=== PATIENT | female | born 1935 | race Caucasian/White ===

== ENCOUNTER 2022-05-14 21:43 | Inpatient (IN) | payer MEDICARE, OTHER ==
[~2022-05-14] VITALS: Ht 157.5 cm; Wt 37.6 kg
--- NOTE | 2022-05-14 21:45 | NUR ---
[id number] from [facility], GLF denies LOC, c/o L shoulder pain, back pain. Pt A/Ox2 with confusion. Tolerating R/a well with no resp distress. Connected pt to POX & monitor. Safety measures in place.
--- NOTE | 2022-05-14 22:30 | NUR ---
FRONT FACER AT PT'S BEDSIDE
--- NOTE | 2022-05-14 22:37 | NUR ---
RAC #20G S/L BLOOD COLLECTED AND SENT TO LAB
--- NOTE | 2022-05-14 22:37 | NUR ---
EMT AT PT'S BEDSIDE FOR EKG
--- NOTE | 2022-05-14 23:01 | NUR ---
COVID ANTIGEN SWAB COLLECTED AND SENT TO LAB
[2022-05-14 23:17] LABS: BASOPHILS % (AUTO) 0.1 % (0.0-2.0); EOSINOPHILS % (AUTO) 0.1 % (0.0-6.0); HEMATOCRIT 42 % (33-45); LYMPHOCYTES # (AUTO) 0.3 K/uL (0.8-4.8); LYMPHOCYTES % (AUTO) 5.8 % (20.0-44.0); MEAN CORPUSCULAR HGB CONC 33 g/dl (31.0-36.0); MEAN CORPUSCULAR VOLUME 90 fL (82-100); MONOCYTES # (AUTO) 0.7 K/uL (0.1-1.30); MONOCYTES % (AUTO) 11.6 % (2.0-12.0); NEUTROPHILS # (AUTO) 4.7 K/uL (1.8-8.9); NEUTROPHILS % (AUTO) 82.4 % (43.0-81.0); PLATELET COUNT (AUTO) 150 K/uL (150-450); RED BLOOD CELL COUNT(AUTO) 4.72 MIL/uL (4.0-5.2); WHITE BLOOD COUNT (AUTO) 5.7 K/uL (4.3-11.0)
[2022-05-14 23:22] LABS: CALCIUM, SERUM 10.2 mg/dL (8.5-10.1); CARBON DIOXIDE 28 mmol/L (21-32); CHLORIDE 103 mmol/L (98-107); CREATININE 1.1 mg/dL (0.6-1.3); GLUCOSE 122 mg/dL (74-106); POTASSIUM 3.8 mmol/L (3.5-5.1); SODIUM SERUM 142 mmol/L (136-145); UREA NITROGEN, BLOOD 17 mg/dL (7-18)
[2022-05-14 23:29] LABS: ALANINE AMINOTRANSFERASE 51 U/L (12-78); ALBUMIN 3.6 g/dL (3.4-5.0); ALKALINE PHOSPHATASE 137 U/L (46-116); ASPARTATE AMINOTRANSFERASE 54 U/L (15-37); BILIRUBIN,DIRECT 0.2 mg/dL (0.0-0.2); BILIRUBIN,TOTAL 0.5 mg/dL (0.2-1.0); TOTAL PROTEIN, SERUM 7.4 g/dL (6.4-8.2)
--- NOTE | 2022-05-14 23:51 | NUR ---
URINE COLLECTED AND SEND TO LAB
--- NOTE | 2022-05-14 23:51 | NUR ---
PT TAKEN TO CT VIA BERNARD
[2022-05-15 00:08] LABS: BILIRUBIN,URINE NEGATIVE (NEGATIVE); COLOR,URINE YELLOW (YELLOW); LEUKOCYTE ESTERASE ,URINE NEGATIVE (NEGATIVE); NITRITE, URINE NEGATIVE (NEGATIVE); PROTEIN,URINE NEGATIVE (NEGATIVE); UGLUCOSE NEGATIVE (NEGATIVE); UROBILINOGEN,URINE 0.2 EU/dL (0.2)
[2022-05-15 00:21] LABS: BACTERIA,URINE Rare /HPF (None Seen); RBC,URINE 0-2 /HPF (0-2); SQUAMOUS EPITHELIAL CELL,UR Few /HPF (None Seen)
--- NOTE | 2022-05-15 01:10 | NUR ---
CALLED [facility] TO PAGE FOR PANEL; AWAITING CALL FROM LUPILLO WASHBURN
--- NOTE | 2022-05-15 01:46 | NUR ---
LUPILLO MEDICINE WORKER AT PT'S BEDSIDE FOR EVAL
[2022-05-15] MEDS ORDERED: MAG HYDROX/AL HYDROX/SIMETH 30 ML UDC PO PRN (02:00)
[2022-05-15] MEDS ORDERED: Z GUARD REMEDY 4 OZ OINT TP PRN (02:00)
[2022-05-15] MEDS ORDERED: MAGNESIUM HYDROXIDE 30 ML UDC PO PRN (02:00)
[2022-05-15] MEDS ORDERED: ZOLPIDEM TARTRATE 5 MG TABLET PO PRN (02:00)
[2022-05-15] MEDS ORDERED: ONDANSETRON HCL/PF 4 MG/2 ML VIAL IVP PRN (02:00)
[2022-05-15] MEDS ORDERED: IV NS 0.9% 1,000 ML IV ONE (02:00)
[2022-05-15] MEDS ORDERED: ACETAMINOPHEN 325 MG TABLET PO PRN (02:00)
--- NOTE | 2022-05-15 02:23 | NUR ---
TEACHER PRESCHOOL AT PT'S BEDSIDE
[2022-05-15 05:06] LABS: BASOPHILS % (AUTO) 0.3 % (0.0-2.0); HEMATOCRIT 39 % (33-45); HEMOGLOBIN 13.1 g/dL (11.5-14.8); LYMPHOCYTES # (AUTO) 0.6 K/uL (0.8-4.8); LYMPHOCYTES % (AUTO) 12.4 % (20.0-44.0); MEAN CORPUSCULAR HGB CONC 34 g/dl (31.0-36.0); MEAN CORPUSCULAR VOLUME 90 fL (82-100); MONOCYTES # (AUTO) 0.7 K/uL (0.1-1.30); MONOCYTES % (AUTO) 14.2 % (2.0-12.0); NEUTROPHILS # (AUTO) 3.7 K/uL (1.8-8.9); NEUTROPHILS % (AUTO) 73.1 % (43.0-81.0); PLATELET COUNT (AUTO) 153 K/uL (150-450); RED BLOOD CELL COUNT(AUTO) 4.31 MIL/uL (4.0-5.2)
[2022-05-15 05:16] LABS: CALCIUM, SERUM 9.3 mg/dL (8.5-10.1); POTASSIUM 3.5 mmol/L (3.5-5.1)
[2022-05-15 05:19] LABS: MAGNESIUM 2.2 mg/dL (1.8-2.4); PHOSPHORUS 3.2 mg/dL (2.5-4.9)
[2022-05-15 05:29] LABS: THYROID STIMULATING HORMONE 1.919 uIU/mL (0.358-3.74)
--- NOTE | 2022-05-15 07:15 | NUR ---
RECEIVED PT FROM GONZALO RODRÍGUEZ PT AWAKE NO DISTRESS
--- NOTE | 2022-05-15 07:25 | NUR ---
VSS. ENDORSED ANY TO DONALD RODRÍGUEZ.
--- NOTE | 2022-05-15 08:30 | NUR ---
BLOOD DROW FOR TROPONIN BY LAB TACH AT BED SIDE
--- NOTE | 2022-05-15 08:42 | NUR ---
ROOM 313-2
[2022-05-15] MEDS ORDERED: DIVA125T32 PO (09:00)
[2022-05-15] MEDS ORDERED: BENAZEPRIL HCL 10 MG TABLET ONE (09:00)
[2022-05-15] MEDS ORDERED: PANTOPRAZOLE 40 MG VIAL ONE (09:00)
[2022-05-15] MEDS ORDERED: LEVOTHYROXINE SODIUM 50 MCG TABLET ONE (09:00)
[2022-05-15] MEDS ORDERED: TRAZ150T75 PO (09:00)
[2022-05-15] MEDS ORDERED: BENA10TA74 PO (09:00)
[2022-05-15] MEDS: LEVOTHYROXINE SODIUM 50 MCG TABLET PO SCH (09:02)
[2022-05-15] MEDS: PANTOPRAZOLE 40 MG VIAL IV SCH (09:02)
[2022-05-15] MEDS: BENAZEPRIL HCL 10 MG TABLET PO SCH (09:03)
--- NOTE | 2022-05-15 09:20 | NUR ---
HAND OFF Charlie VALADEZ RN TO ROOM 313-2 VIA AKASH LOCKHART AND FIORDALIZA TO BR WITH GORDO
--- NOTE | 2022-05-15 10:12 | NUR ---
RN ADMITTING NOTES PATIENT CAME TO UNIT @0950 VIA GURNEY ACCOMPANIED BY 2 ER STAFF. PATIENT ABLE TO STAND AND TRANSFER WITH ASSIST TO BED. PATIENT HAD NO PAIN EXPRESSED. PATIENT A/Ox1-2, EPISODES OF CONFUSION. PATIENT REFUSED SKIN CHECK AND TELE MONITORING WILL ATTEMPT AGAIN. V/S STABLE. FULL BODY ASSESSMENT COMPLETED: HEART SOUNDS WNL, LUNG SOUNDS WNL, PATIENT WENT TO THE BATHROOM BEFORE COMING UP TO THE UNIT. SAFETY MEASURES IN PLACE: BED LOCKED AND IN LOWEST POSITION, HOB ELEVATED, SIDE RAILS UPx3, BED ALARM ON, CALL LIGHT WITHIN REACH. WILL CONTINUE TO MONITOR.
[2022-05-15 10:44] VITALS: BP 128/78
[2022-05-15 12:00] VITALS: BP 113/75
--- NOTE | 2022-05-15 12:17 | NUR ---
RN NOTES PATIENT ALLOWED RN TO APPLY TELE MONITORING, SHOWING SR 78 AT THIS TIME, NO COMPLAINT OF CHEST PAIN OR DISCOMFORT. WILL CONTINUE TO MONITOR. SKIN OF ABDOMEN CHECKED WHEN APPLYING TELE PADS, INTACT, EXTREMITIES SKIN INTACT, PATIENT REFUSED TO SHOW BACK OR [facility] AREA.
--- NOTE | 2022-05-15 13:00 | NUR ---
RN NOTES PATIENT CONSTANTLY TRYING TO GET UP WITHOUT ASSISTANCE, BED ALARM ON. RN SITTING IN FRONT OF ROOM.
--- NOTE | 2022-05-15 16:00 | NUR ---
RN NOTES PATIENT TRIGGERED BED ALARM, RN DANIELLE STOPPED PATIENT AND HELPED AMBULATE IN THE HALLS ATTEMPTING TO REDIRECT. CHARGE NURSE VICTOR HUGO ATTEMPTED TO HELP, PATIENT BECAME AGGRESSIVE AND SCRATCHED CHARGE NURSE. DR. BROWNING MADE AWARE OF BEHAVIOR. PATIENT MOVED TO 307-1 TO BE CLOSER TO THE NURSE'S STATION. STUDENTS CURRENTLY STAYING WITH PATIENT.
[2022-05-15] MEDS: LORAZEPAM INJ 2 MG/ML VIAL IV PRN (16:30)
--- NOTE | 2022-05-15 16:45 | NUR ---
RN NOTES DR. BROWNING ORDERED PRN ATIVAN 1MG Q8 IV. PRN ATIVAN ADMINISTERED, PSYCH CONSULT ORDERED. WILL CONTINUE TO MONITOR.
[2022-05-15] MEDS: DIVALPROEX SODIUM 125 MG TABLET.DR PO SCH (17:08)
--- NOTE | 2022-05-15 17:15 | NUR ---
RN NOTES PATIENT IN BED EATING DINNER, TOOK SCHEDULED DEPAKOTE MEDICATION. BED ALARM ON, WILL CONTINUE TO MONITOR PATIENT.
--- NOTE | 2022-05-15 18:30 | NUR ---
RN NOTES PATIENT SEEN ON FLOOR NEXT TO BED SITTING, ALARM GOING OFF AND FOOD ALL AROUND HER. ALLYSON RODRÍGUEZ IMMEDIATELY CALLED FOR HELP AND ASKED PATIENT IF SHE WAS IN ANY PAIN. PATIENT EXPRESSED PAIN IN HER BACK AND L WRIST. PATIENT WAS ASKED IF SHE COULD STAND. CHARGE NURSE VICTOR HUGO, ANNE BRADSHAW, AND ANNE CIFUENTES CAME TO ASSIST PATIENT BACK TO BED. PATIENT ABLE TO BEND ELBOWS, AND MOVE BACK INTO BED. SMALL SKIN TEAR FOUND ON HER L HAND. DRESSING PLACED. PATIENT ABLE TO MOVE ALL EXTREMITIES WITH SOME FACIAL GRIMACING. DR. BROWNING MADE AWARE. V/S TAKEN 147/87, RR 20, TEMP 98.5, O2 ON RA 98, HR 90. PATIENT NEW RESTING IN BED, BED ALARM ON. WILL NOTIFY FAMILY. WILL BEGIN NEUROCHECKS.
--- NOTE | 2022-05-15 19:00 | NUR ---
RN NOTES SOLANGE MCCORMICK CALLED AND INFORMED OF THE INCIDENT. THANKED NURSE FOR THE UPDATE.
--- NOTE | 2022-05-15 19:32 | NUR ---
RN CLOSING NOTE PATIENT IN BED RESTING, A/Ox1-2. STABLE ON ROOM AIR. NO S/S OF RESPIRATORY DISTRESS OR DISCOMFORT. PATIENT ON TELE MONITORING, SHOWING SR HR 90. NO COMPLAINT OF CHEST PAIN OR DISCOMFORT. PATIENT HAS SITTER AT BEDSIDE, IV ACCES R AC #20 INTACT AND PATENT. NO S/S OF INFILTRATION. SKIN TEAR ON L HAND DRESSING IN PLACE, PATIENT REFUSING PHOTOS TO BE TAKEN. SAFETY MEASURES IN PLACE: BED LOCKED AND IN LOWEST POSITION, SIDE RAILS UP x3, BED ALARM ON, HOB ELEVATED, SITTER AT BEDSIDE. WILL ENDORSE TO NEXT SHIFT ANY ANY.
--- NOTE | 2022-05-15 19:40 | NUR ---
TRIPE SCRAPER OPENING NOTE RECEIVED PATIENT IN BED; AWAKE, ALERT AND ORIENTED X 1-2. WITH 1:1 SITTER @ BEDSIDE. ON ROOM AIR; TOLERATING WELL. BREATHING EVEN AND NONLABORED. NOT IN ANY FORM OF RESPIRATORY DISTRESS. DENIES ANY PAIN OR DISCOMFORT AT THIS TIME. WITH IV ACCESS ON RIGHT ANTECUBITAL 20G; PATENT, INTACT AND SALINE LOCKED. ON TELEMETRY MONITORING WHICH READS SINUS RHYTHM HR-78 BPM. PATIENT REFUSED PHOTOS TO BE TAKEN. SAFETY PRECAUTIONS IMPLEMENTED: BED ALARM TURNED ON, CALL LIGHT AND TABLE WITHIN REACH, SIDE RAILS UP X 2, BED IN LOWEST LOCKED POSITION. WILL CONTINUE PLAN OF CARE.
[2022-05-15 20:00] VITALS: BP 156/96
--- NOTE | 2022-05-15 20:33 | NUR ---
RN NOTE PATIENT'S BP - 156/96 MM HG, MA-98 BPM. FERNANDO WESLEY NP NOTIFIED WITH NO NEW ORDER MADE. WILL CONTINUE TO MONITOR PT.
[2022-05-15] MEDS: TRAZODONE 50 MG TABLET PO SCH (22:59)
[2022-05-16] VITALS: BP 132/74
[2022-05-16 04:00] VITALS: BP 128/69
--- NOTE | 2022-05-16 06:00 | NUR ---
ORTHOSTATIC VITAL SIGNS TAKEN FOLLOWS: SUPINE: BP- 127/68 MM HG, MD-84 SITTING: BP- 131/72 MM HG, MD-86 STANDING: BP- 128/70 MM HG, MD-83
[2022-05-16 06:08] LABS: BASOPHILS % (AUTO) 0.2 % (0.0-2.0); EOSINOPHILS % (AUTO) 0.2 % (0.0-6.0); HEMATOCRIT 40 % (33-45); HEMOGLOBIN 13.2 g/dL (11.5-14.8); LYMPHOCYTES # (AUTO) 0.8 K/uL (0.8-4.8); LYMPHOCYTES % (AUTO) 17.4 % (20.0-44.0); MEAN CORPUSCULAR HGB CONC 33 g/dl (31.0-36.0); MEAN CORPUSCULAR VOLUME 90 fL (82-100); MONOCYTES # (AUTO) 0.7 K/uL (0.1-1.30); MONOCYTES % (AUTO) 15.9 % (2.0-12.0); NEUTROPHILS # (AUTO) 3.1 K/uL (1.8-8.9); NEUTROPHILS % (AUTO) 66.3 % (43.0-81.0); PLATELET COUNT (AUTO) 138 K/uL (150-450); RED BLOOD CELL COUNT(AUTO) 4.44 MIL/uL (4.0-5.2); WHITE BLOOD COUNT (AUTO) 4.7 K/uL (4.3-11.0)
[2022-05-16 06:39] LABS: CALCIUM, SERUM 8.9 mg/dL (8.5-10.1); CREATININE 0.8 mg/dL (0.6-1.3); MAGNESIUM 2.1 mg/dL (1.8-2.4); PHOSPHORUS 2.7 mg/dL (2.5-4.9); POTASSIUM 3.3 mmol/L (3.5-5.1)
--- NOTE | 2022-05-16 06:55 | NUR ---
REVENUE ENFORCEMENT COLLECTION AGENT CLOSING NOTE PATIENT IN BED; AWAKE, A/O X 1-2. WITH 1:1 SITTER @ BEDSIDE. STABLE ON ROOM AIR. BREATHING EQUAL AND UNLABORED. IN NO ACUTE DISTRESS. DENIES ANY PAIN OR DISCOMFORT AT THIS TIME. WITH IV ACCESS ON RIGHT ANTECUBITAL 20G; PATENT, INTACT AND SALINE LOCKED. ON TELEMETRY MONITORING WHICH READS SINUS RHYTHM HR-71 BPM. SAFETY PRECAUTIONS MAINTAINED: BED ALARM TURNED ON, CALL LIGHT AND TABLE WITHIN REACH, SIDE RAILS UP X 2, BED IN LOWEST LOCKED POSITION. ENDORSED TO RN MARIA LUZ FOR ANY.
--- NOTE | 2022-05-16 07:35 | NUR ---
MERGERS AND ACQUISITIONS MANAGER OPENING NOTE RECEIVED PATIENT IN BED; SLEEPING, EASILY AWAKEN A/O X 1-2, EPISODES OF CONFUSION, WITHDRAWN, WITH 1:1 SITTER @ BEDSIDE. STABLE ON ROOM AIR. BREATHING EVEN AND UNLABORED AT 998% SPO2. NO ACUTE DISTRESS NOTED. NO COMPLAINTS OF PAIN NOR DISCOMFORT AT THIS TIME. IV ACCESS ON RIGHT ANTECUBITAL 20G; PATENT, INTACT AND SALINE LOCKED, INFUSING WELL.TELEMETRY MONITORING SHOWING SINUS RHYTHM HR-78 BPM. REFUSED TO WEAR DVT SLEEVES, REFUSED SKIN ASSESSMENT. SAFETY PRECAUTIONS IN PLACE: BED ALARM TURNED ON, BED IN LOWEST POSITION AND LOCKED, CALL LIGHT AND TABLE WITHIN REACH, SIDE RAILS UP X 2. WILL CONTINUE TO MONITOR DURING MY SHIFT. Addendum: 05/16/22 at 1901 by TARA BULLARD RN 98% SPO2
[2022-05-16] MEDS: LEVOTHYROXINE SODIUM 50 MCG TABLET PO SCH ×2 (07:53→08:11)
[2022-05-16 08:00] VITALS: BP 122/73
[2022-05-16] MEDS: DIVALPROEX SODIUM 125 MG TABLET.DR PO SCH ×2 (08:11→17:29)
[2022-05-16] MEDS: PANTOPRAZOLE 40 MG VIAL IV SCH (08:11)
[2022-05-16] MEDS: BENAZEPRIL HCL 10 MG TABLET PO SCH (08:12)
[2022-05-16] MEDS ORDERED: BENAZEPRIL HCL 10 MG TABLET PO SCH (09:00)
--- NOTE | 2022-05-16 09:45 | NUR ---
RN NOTES - PSYCHE CONSULT DONE FERRYBOAT OPERATOR HELPER JACK.
[2022-05-16] MEDS ORDERED: POTASSIUM CHLORIDE 20 MEQ TAB.PRT.SR PO SCH (10:00)
--- NOTE | 2022-05-16 10:24 | NUR ---
RN NOTES - TELEMETRY DC'D PER MD ORDER. CARRIED OUT
[2022-05-16 12:00] VITALS: BP 125/72
[2022-05-16] MEDS: LORAZEPAM INJ 2 MG/ML VIAL IV PRN (14:07)
--- NOTE | 2022-05-16 14:07 | NUR ---
RN NOTES - PATIENT AGITATED, WANTED TO GET OUT OF BED OVER THE SIDE RAILS, TRYING TO PULL HER IV OUT AND USES PROFANITY IN WELSH, ADMINISTERED ATIVAN 1 MG IV. KEPT PATIENT SAFE. PATIENT WITH ONE-ON-ONE SITTER.
[2022-05-16 16:00] VITALS: BP 132/78
--- NOTE | 2022-05-16 18:57 | NUR ---
MS RN CLOSING NOTE PATIENT LYING IN BED; AWAKE, CALM, A/O X 1-2, EPISODES OF CONFUSION WITH 1:1 SITTER @ BEDSIDE. STABLE ON ROOM AIR. BREATHING EVEN AND UNLABORED AT 98% SPO2. NO ACUTE DISTRESS NOTED, NO S/SX OF NON-VERBAL CUES PAIN NOR DISCOMFORT AT THIS TIME. IV ACCESS ON RIGHT ANTECUBITAL 20G; PATENT, INTACT AND SALINE LOCKED, INFUSING WELL, COVERED WITH KERLIX AND SLEEVE. REFUSED TO WEAR DVT SLEEVES. ALL DUE MEDS GIVEN, ALL NEEDS MET. SAFETY PRECAUTIONS MAINTAINED: BED ALARM TURNED ON, BED IN LOWEST POSITION AND LOCKED, CALL LIGHT AND TABLE WITHIN REACH, SIDE RAILS UP X 2. ENDORSED TO SURGICAL TECHNICIAN NURSE.
--- NOTE | 2022-05-16 19:30 | NUR ---
MS RN OPENING NOTE RECEIVED PATIENT IN BED; AWAKE, ALERT AND ORIENTED X 1-2. WITH 1:1 SITTER @ BEDSIDE. ON ROOM AIR; TOLERATING WELL. BREATHING EVEN AND NONLABORED. NOT IN ANY FORM OF RESPIRATORY DISTRESS. DENIES ANY PAIN OR DISCOMFORT AT THIS TIME. WITH IV ACCESS ON RIGHT ANTECUBITAL 20G; PATENT, INTACT AND SALINE LOCKED. SAFETY PRECAUTIONS IMPLEMENTED: BED ALARM TURNED ON, CALL LIGHT AND TABLE WITHIN REACH, SIDE RAILS UP X 2, BED IN LOWEST LOCKED POSITION. WILL CONTINUE TO MONITOR THROUGHOUT THE SHIFT.
[2022-05-16 20:00] VITALS: BP 112/52
[2022-05-16] MEDS: TRAZODONE 50 MG TABLET PO SCH (22:53)
[2022-05-17 04:00] VITALS: BP 140/94
[2022-05-17 06:14] LABS: BASOPHILS % (AUTO) 0.3 % (0.0-2.0); EOSINOPHILS % (AUTO) 0.2 % (0.0-6.0); HEMATOCRIT 42 % (33-45); HEMOGLOBIN 13.8 g/dL (11.5-14.8); LYMPHOCYTES % (AUTO) 20.7 % (20.0-44.0); MEAN CORPUSCULAR HGB CONC 33 g/dl (31.0-36.0); MEAN CORPUSCULAR VOLUME 90 fL (82-100); MONOCYTES # (AUTO) 0.7 K/uL (0.1-1.30); NEUTROPHILS # (AUTO) 3.1 K/uL (1.8-8.9); NEUTROPHILS % (AUTO) 63.8 % (43.0-81.0); PLATELET COUNT (AUTO) 130 K/uL (150-450); RED BLOOD CELL COUNT(AUTO) 4.62 MIL/uL (4.0-5.2); WHITE BLOOD COUNT (AUTO) 4.8 K/uL (4.3-11.0)
[2022-05-17 06:24] LABS: CALCIUM, SERUM 9.1 mg/dL (8.5-10.1); CARBON DIOXIDE 27 mmol/L (21-32); CHLORIDE 108 mmol/L (98-107); CREATININE 0.9 mg/dL (0.6-1.3); GLUCOSE 81 mg/dL (74-106); MAGNESIUM 2.2 mg/dL (1.8-2.4); PHOSPHORUS 2.9 mg/dL (2.5-4.9); POTASSIUM 3.5 mmol/L (3.5-5.1); SODIUM SERUM 142 mmol/L (136-145); UREA NITROGEN, BLOOD 16 mg/dL (7-18)
--- NOTE | 2022-05-17 06:55 | NUR ---
RN CLOSING NOTE PATIENT IN BED; AWAKE, A/O X 1-2. WITH 1:1 SITTER @ BEDSIDE. STABLE ON ROOM AIR. BREATHING EQUAL AND UNLABORED. IN NO ACUTE DISTRESS. DENIES ANY PAIN OR DISCOMFORT AT THIS TIME. WITH IV ACCESS ON RIGHT ANTECUBITAL 20G; PATENT, INTACT AND SALINE LOCKED. SAFETY PRECAUTIONS MAINTAINED: BED ALARM TURNED ON, CALL LIGHT AND TABLE WITHIN REACH, SIDE RAILS UP X 2, BED IN LOWEST LOCKED POSITION. ENDORSED TO RN MARIA LUZ FOR ANY.
--- NOTE | 2022-05-17 07:35 | NUR ---
MS RN OPENING NOTE RECEIVED PATIENT IN BED; SLEEPING, EASILY AWAKEN A/O X 1-2, EPISODES OF CONFUSION, WITHDRAWN, STABLE ON ROOM AIR. BREATHING EVEN AND UNLABORED AT 998% SPO2. NO ACUTE DISTRESS NOTED. NO COMPLAINTS OF PAIN NOR DISCOMFORT AT THIS TIME. IV ACCESS ON RIGHT ANTECUBITAL 20G; PATENT, INTACT AND SALINE LOCKED, INFUSING WELL. SAFETY PRECAUTIONS IN PLACE: BED ALARM TURNED ON, BED IN LOWEST POSITION AND LOCKED, CALL LIGHT AND TABLE WITHIN REACH, SIDE RAILS UP X 2. WILL CONTINUE TO MONITOR DURING MY SHIFT.
[2022-05-17 08:00] VITALS: BP 141/70
[2022-05-17] MEDS: PANTOPRAZOLE 40 MG TABLET.DR PO SCH (08:21)
[2022-05-17] MEDS: BENAZEPRIL HCL 10 MG TABLET PO SCH (08:22)
[2022-05-17] MEDS: DIVALPROEX SODIUM 125 MG TABLET.DR PO SCH ×2 (08:23→18:07)
--- NOTE | 2022-05-17 08:55 | NUR ---
RN NOTES - MEDICAL RESTRAINTS PATIENT TRYING TO GET OUT OF BED, PATIENT TRYING TO PULL HER IV, NO SITTER, BACK BRACE IS NEEDED FOR AMBULATION, SOFT ARM RESTRAINTS ORDERED APPROVED BY .
--- NOTE | 2022-05-17 12:13 | NUR ---
RN NOTES - BACK BRACE PT HANNAH RECOMMENDED PATIENT TO ONLY AMBULATE WITH BACK BRACE. SMALL BACK BRACE ORDERED BUT VENDOR CANT DO MEASUREMENTS UNTIL TOMORROW - JONE [phone]
[2022-05-17 16:00] VITALS: BP 139/63
--- NOTE | 2022-05-17 18:37 | NUR ---
MS RN CLOSING NOTE PATIENT IN BED; AWAKE, A/O X 1-2, EPISODES OF CONFUSION, STABLE ON ROOM AIR. BREATHING EVEN AND UNLABORED AT 98% SPO2. NO ACUTE DISTRESS NOTED. NO COMPLAINTS OF PAIN NOR DISCOMFORT AT THIS TIME. PATIENT WITH BILATERAL SOFT ARM RESTRAINTS, FRQUENT VISUAL CHECKS DONE AND ASSESSMENTS DONE. IV ACCESS ON RIGHT ANTECUBITAL 20G; PATENT, INTACT AND SALINE LOCKED, INFUSING WELL. ALL DUE MEDS GIVEN, ALL NEEDS MET. SAFETY PRECAUTIONS MAINTAINED: BED ALARM TURNED ON, BED IN LOWEST POSITION AND LOCKED, CALL LIGHT AND TABLE WITHIN REACH, SIDE RAILS UP X 2. WILL CONTINUE TO MONITOR DURING MY SHIFT.
--- NOTE | 2022-05-17 18:54 | NUR ---
MS RN NOTES RESUMING CARE FROM AM SHIFT TO PM SHIFT
[2022-05-17 20:35] VITALS: BP 143/78
[2022-05-17] MEDS: TRAZODONE 50 MG TABLET PO SCH (21:05)
--- NOTE | 2022-05-18 04:59 | NUR ---
RN NOTES - IV ACCESS INFILTRATED - ATTEMPTED TO INSERT BUT PATIENT IS HARD STICK, CHARGE NURSE AWARE.
--- NOTE | 2022-05-18 05:18 | NUR ---
MS RN CLOSING NOTE PATIENT IN BED; SLEEPING, EASILY AWAKEN A/O X 1-2, STABLE ON ROOM AIR. BREATHING EVEN AND UNLABORED AT 98% SPO2. NO ACUTE DISTRESS NOTED. NO IV ACCESS AT THIS TIME, NO DUE IV MEDS, CHARGE NURSE AWARE. ALL DUE MEDS GIVEN. SAFETY PRECAUTIONS IN PLACE: BED ALARM TURNED ON, BED IN LOWEST POSITION AND LOCKED, CALL LIGHT AND TABLE WITHIN REACH, SIDE RAILS UP X 2. WILL ENDORSE TO THE RN FOR CONTINUITY OF CARE.
[2022-05-18 06:41] LABS: BASOPHILS % (AUTO) 0.1 % (0.0-2.0); EOSINOPHILS % (AUTO) 0.5 % (0.0-6.0); HEMATOCRIT 43 % (33-45); HEMOGLOBIN 14.3 g/dL (11.5-14.8); LYMPHOCYTES # (AUTO) 0.8 K/uL (0.8-4.8); LYMPHOCYTES % (AUTO) 17.2 % (20.0-44.0); MEAN CORPUSCULAR HGB CONC 34 g/dl (31.0-36.0); MEAN CORPUSCULAR VOLUME 89 fL (82-100); MONOCYTES # (AUTO) 0.7 K/uL (0.1-1.30); MONOCYTES % (AUTO) 13.8 % (2.0-12.0); NEUTROPHILS # (AUTO) 3.3 K/uL (1.8-8.9); NEUTROPHILS % (AUTO) 68.4 % (43.0-81.0); PLATELET COUNT (AUTO) 144 K/uL (150-450); RED BLOOD CELL COUNT(AUTO) 4.78 MIL/uL (4.0-5.2); WHITE BLOOD COUNT (AUTO) 4.9 K/uL (4.3-11.0)
[2022-05-18 07:02] LABS: CALCIUM, SERUM 9.5 mg/dL (8.5-10.1); MAGNESIUM 2.1 mg/dL (1.8-2.4); POTASSIUM 3.1 mmol/L (3.5-5.1)
--- NOTE | 2022-05-18 07:06 | NUR ---
MS RN OPENING NOTES RECEIVED PATIENT SLEEPING IN BED, A/Ox1-2, EPISODES OF CONFUSION. ON ROOM AIR NO S/S OF RESPIRATORY DISTRESS. NO IV ACCESS. HAS BILATERAL SOFT WRIST RESTRAINTS, CIRCULATION WNL, SKIN INTACT. SKIN ISSUES: GENERALIZED DISCOLORATION AND DRYNESS. SAFETY MEASURES IN PLACE: BED LOCKED AND IN LOWEST POSITION, SIDE RAILS UPx3, CALL LIGHT WITHIN REACH, HOB ELEVATED, BED ALARM ON. WILL CONTINUE TO MONITOR.
[2022-05-18 08:00] VITALS: BP 143/83
[2022-05-18 08:51] VITALS: BP 143/83
[2022-05-18] MEDS: DIVALPROEX SODIUM 125 MG TABLET.DR PO SCH (08:51)
[2022-05-18] MEDS: BENAZEPRIL HCL 10 MG TABLET PO SCH (08:51)
[2022-05-18] MEDS: PANTOPRAZOLE 40 MG TABLET.DR PO SCH (08:51)
[2022-05-18] MEDS: LEVOTHYROXINE SODIUM 50 MCG TABLET PO SCH (08:51)
[2022-05-18] MEDS ORDERED: POTASSIUM CHLORIDE 20 MEQ TAB.PRT.SR PO SCH (10:00)
[2022-05-18] MEDS ORDERED: POTASSIUM CHLORIDE 20 MEQ POWDER PACKET PO ONE (10:00)
--- NOTE | 2022-05-18 15:20 | NUR ---
ASSOCIATE MARKETING MANAGER NOTES PATIENT D/C BACK TO [facility]ED [facility]IV[facility], CALLED AND SPOKE TO MALDONADO. PATIENT A/Ox1-2, EPISODES OF CONFUSION. CONTINENT USES BATHROOM. HEALTH TEACHINGS AND DISCHARGE INSTRUCTIONS EXPLAINED TO PATIENT. HOWEVER, PATIENT UNABLE TO COMPREHEND. ID BAND REMOVED ALL FORMS SIGNED AND FILED INTO CHART. ALL BELONGINGS WITH PATIENT. PATIENT LEFT UNIT @1445, CHARGE NURSE AND MD AWARE OF DISCHARGE. ACCOMPANIED BY RNALLYSON VIA WHEELCHAIR TO PRIVATE CARE.
== END 2022-05-18 14:50 | DRG 551 ==
LOC: EDBD 21:54 → ER 21:54 → TRANSITION 05-15 03:17 → TELE 05-15 08:20 → MED 05-15 17:31 → TELE 05-15 17:36 → MED 05-16 16:36
PROVIDERS: ADMIT Nurse Practitioner Acute Care; ATTEND Student in an Organized Health Care Education/Training Program
DX: S32.058A Other fracture of fifth lumbar vertebra, initial encounter for closed fracture (principal); G93.41 Metabolic encephalopathy; C22.0 Liver cell carcinoma; R55 Syncope and collapse; W19.XXXA Unspecified fall, initial encounter; Z20.822 Contact with and (suspected) exposure to COVID-19; F02.80 Dementia in other diseases classified elsewhere, unspecified severity, without behavioral disturbance, psychotic disturbance, mood disturbance, and anxiety; G30.9 Alzheimer's disease, unspecified; I11.0 Hypertensive heart disease with heart failure; I50.9 Heart failure, unspecified; W18.30XA Fall on same level, unspecified, initial encounter; Y92.9 Unspecified place or not applicable; E03.9 Hypothyroidism, unspecified; E78.5 Hyperlipidemia, unspecified; K74.60 Unspecified cirrhosis of liver; J40 Bronchitis, not specified as acute or chronic; M43.16 Spondylolisthesis, lumbar region; M47.819 Spondylosis without myelopathy or radiculopathy, site unspecified
CPT/HCPCS: 36415; 70450-TC; 71045-TC; 71250-TC; 72020-TC; 72131-TC; 72170-TC; 73030-TC; 73110; 80048-TC; 80076-TC; 81001; 83735-TC; 84100-TC; 84443-TC; 84484-TC; 85025-TC; 85730-TC; 87081-TC; 93307-TC; C9113; C9803; G0378; J2060; J2405; J7030

== ENCOUNTER 2022-05-21 15:19 | Emergency (ER) | payer MEDICARE, OTHER ==
[~2022-05-21] VITALS: Ht 157.5 cm; Wt 49.9 kg
[~2022-05-21 15:19] MED LIST: BENA10TA74 PO; DIVA125T32 PO; TRAZ150T75 PO
--- NOTE | 2022-05-21 15:30 | NUR ---
BIB RA 860 FROM [facility],C/O RIGHT ARM PAIN,S/P FALL FROM HER CHAIR
--- NOTE | 2022-05-21 18:17 | NUR ---
head ct before sending back the patient. md cali
--- NOTE | 2022-05-21 18:46 | NUR ---
[facility] AT [address] ADDRESS CONFIRMED BY TYRELL NARVAEZ.
--- NOTE | 2022-05-21 19:23 | NUR ---
SALTY CLLED FOR BLS BACK TO SNF PER [facility] ETA - 1 HOUR
--- NOTE | 2022-05-21 19:25 | NUR ---
[facility] ETA FOR FIELD ARTILLERY FIRE CONTROL MAN [id number]
--- NOTE | 2022-05-21 19:34 | NUR ---
REPORT GIVEN TO SNF
--- NOTE | 2022-05-21 20:15 | NUR ---
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 PT. will be going back to SNF. Report given to EMT.
--- NOTE | 2022-05-21 20:22 | NUR ---
Patient discharged to home in stable condition. Written and verbal after care instructions given. Patient verbalizes understanding of instruction.
[2022-05-21 20:23] VITALS: BP 126/82
== END 2022-05-21 20:25 ==
LOC: ER 16:00
DX: M25.511 Pain in right shoulder (principal); R51.9 Headache, unspecified; R41.82 Altered mental status, unspecified; I10 Essential (primary) hypertension; Z79.899 Other long term (current) drug therapy
CPT/HCPCS: 70450-TC; 73030-TC; 73060-TC